=== PATIENT | female | born 1985 | race Caucasian/White ===

== ENCOUNTER → 2019-02-26 | Emergency (ER) | payer OTHER ==
[~2019-02-26] MED LIST: NALBUPHINE HCL 10 MG/1 ML ONE; ONDANSETRON HCL/PF 4 MG/ 2ML VIAL ONE; hydrALAZINE HCL 20 MG/1 ML ONE
[2019-02-26 13:10] LABS: BASOPHILS % 0.7 % (0.0-1.5); NEUTROPHILS # 6.7 # k/uL (1.4-7.7)
[2019-02-26 13:20] LABS: eGFR (Non-African) > 60
[2019-02-26 14:42] LABS: APPEARANCE,URINE CLEAR (CLEAR); COLOR,URINE YELLOW (YELLOW); OCCULT BLOOD,URINE NEGATIVE (NEGATIVE); URINE HCG NEGATIVE (NEGATIVE); UROBILINOGEN URINE 0.2 Eu (0.2-1.0)
--- NOTE | 2019-02-27 16:51 | Diagnostic Imaging Report ---
YANDEL SANDY [facility] [address] [facility] [address] [place], [place]. [address] Report Submission Date: Feb 26, 2019 1:33:53 PM CDT Patient Study Name: VILMA MAJOR Date: Feb 26, 2019 1:09:25 PM CDT Modality Type: CT\SR Gender: F Description: CT HEAD W/O : 83 Institution: [facility] Physician: YANDEL SANDY Examination: CT head without contrast History: HEADACHE, HYPERTENSIVE CRISIS Comparison exam: None available Technique: Noncontrast head CT protocol. Findings: Ventricles and sulci are appropriate for patient age. Cerebrocerebellar parenchyma demonstrates normal attenuation. No evidence for parenchymal hemorrhage. No evidence for mass or mass effect. No midline shift. No extra axial fluid collections. Partial visualization of the paranasal sinuses, mastoid air cells, orbits, skull and scalp without gross irregularity. Impression: No acute parenchymal process. No hemorrhage. Electronically signed on Feb 26, 2019 1:33:53 PM CDT by: Carmelo PAINTING
== END ==
LOC: ED 12:12
DX: I10 Essential (primary) hypertension (principal)
CPT/HCPCS: 70450; 80053; 81002; 81025; 85025; 99281; 99284

== ENCOUNTER 2019-04-02 12:24 | Outpatient (CLI) | payer OTHER ==
[2019-04-02 12:49] LABS: eGFR (Non-African) > 60
--- NOTE | 2019-04-02 15:13 | Diagnostic Imaging Report ---
LEONARD NEWBY [facility] [address] [facility] [address] [place] [address]. [id number] Report Submission Date: Apr 02, 2019 2:13:54 PM CDT Patient Study Name: VILMA MAJOR Date: Apr 02, 2019 12:34:18 PM CDT Modality Type: US Gender: F Description: US TRANSVAGINAL PELVIS : 83 Institution: [facility] Physician: LEONARD NEWBY Examination: Ultrasound pelvis History: OVARIAN PAIN Comparison exams: None available Findings: Sonographic evaluation of the pelvis demonstrates uterus measuring 7.7 x 5.0 x 5.0 cm. Myometrium without gross irregularity. Endometrial complex measures 12.9 mm. Cervical Nabothian cyst measuring 7 mm diameter. Right ovary measures 3.7 x 2.2 x 2.4 cm. Left ovary measures 3.7 x 2.4 x 2.2 cm. Normal flow on Doppler analysis. Bilateral ovarian cysts largest on the left measures 1.7 cm diameter, largest on the right measures 9.1 mm. Impression: No evidence for pelvic mass or lesion. No myometrial abnormality. Bilateral ovarian cysts. No torsion. Prominent endometrial complex measuring 12.9 mm - correlate with menstrual cycle. Electronically signed on Apr 02, 2019 2:13:54 PM CDT by: Carmelo PAINTING
== END 2019-04-02 12:26 ==
LOC: RAD 12:24
PROVIDERS: ATTEND Family Medicine
DX: I10 Essential (primary) hypertension (principal); N83.201 Unspecified ovarian cyst, right side
CPT/HCPCS: 36415; 76830; 80048

== ENCOUNTER 2019-07-15 18:46 | Emergency (ER) | payer OTHER ==
[2019-07-15 19:23] VITALS: BP 147/99
--- NOTE | 2019-07-15 19:23 | ED Physician Documentation ---
Female Urogenital Problems - HISTORIAN Historian: patient - HPI Stated Complaint: vaginal bleeding Chief Complaint: Female Urogenital Problems Additional Information: Patient presents to ED with a 1 month history of vaginal bleeding. Patient reports her last menstrual cycle was December 2018. Prior to that her cycles were normal every month for 9 years prior. Previously, she states she had irregular periods but after the of her daughter 9 years ago her periods have been normal. She reports heavy bleeding with some clots, using tampons and pads to deal with the bleeding. She took a test 2 months ago but states she was unsure about the results as she could not interpret the lines. She denies any abdominal pain. She does not have an log buncher. Patient had a tubal ligation after the of her daughter 9 years ago. Onset: days ago (30) Severity: moderate Location of Pain: denies: abdominal pain - Vaginal Bleeding Compared to Menstrual Periods: heavier, passing clots Description of Menstrual: irregular period(s) Where was Test Done: home Sexual History: active Contraceptive: other (tubal) - Associated Symptoms Urinary Symptoms: none Discharge: denies: vaginal discharge - ROS CONST: denies: fever GI/: denies: nausea, vomiting CVS/RESP: denies: chest pain, shortness of breath EYES/ENT: none NEURO/PSYCH: denies: headache, dizzy MS/SKIN/LYMPH: none - PAST HX Past History: none Other History: none Surgeries/Procedures: none Allergies/Adverse Reactions: Allergies Allergy/AdvReac Type Severity Reaction Status Date / Time acetaminophen [From Percocet] Allergy Hives Verified 07/15/19 19:04 oxycodone HCl [From Percocet] Allergy Hives Verified 07/15/19 19:04 tramadol Allergy Rash Verified 07/15/19 19:04 - SOCIAL HX Smoking History: non-smoker Alcohol Use: none Drug Use: none - FAMILY HX Family History: none - VITAL SIGNS Vital Signs: Vital Signs Temp Pulse Resp BP Pulse Ox 98.3 F 91 H 18 147/99 99 07/15/19 18:55 07/15/19 18:55 07/15/19 18:55 07/15/19 18:55 07/15/19 18:55 - REVIEWED ASSESSMENTS Nursing Assessment Reviewed: Yes Vitals Reviewed: Yes ED Results Lab/Radiology - Orders Orders: ED Orders Category Date Time Status CBC/PLATELET/DIFF Routine Lab 07/15/19 Ordered CMP Routine Lab 07/15/19 Ordered SERUM HCG Stat Lab 07/15/19 Ordered TSH Stat Lab 07/15/19 Ordered Female Urogenital Problems - EXAM General Appearance: no acute distress, alert EENT: RASHAWN Neck: nml inspection Respiratory: no resp. distress, breath sounds nml CVS: reg rate & rhythm Abdomen: soft, non-tender, nml bowel sounds. No: tenderness Back: non-tender. No: CVA tenderness Skin: color nml, no rash, warm,dry Extremities: non-tender, no edema Neuro: oriented X3, mood/affect nml Discharge Clincal Impression: Irregular menstrual bleeding Referrals: Satnam Winston MD [Primary Care Provider] - 2 Days Additional Instructions: 1. Avoid aspirin or aspirin containing products. 2. Tylenol as needed for pain 3. Follow up with log buncher as soon as possible. 4. Return to ER for new or worsening symptoms Condition: Stable Disposition: 01 HOME, SELF-CARE Decision to Admit: NO Date of Decison to Admit: 07/15/19 Decision Time: 20:45
[2019-07-15 20:11] LABS: eGFR (Non-African) > 60
[2019-07-15 20:37] LABS: BASOPHILS % 5.2 % (0.0-1.5); NEUTROPHILS # 3.1 # k/uL (1.4-7.7)
== END 2019-07-15 20:56 | disposition home or self-care (01) ==
LOC: ED 18:46
DX: N92.6 Irregular menstruation, unspecified (principal)
CPT/HCPCS: 80053; 84443; 84703; 85025; 99282